=== PATIENT | female | born 1990 | race American Indian/Alaskan Native ===

== ENCOUNTER 2023-07-01 10:25 | Emergency (ER) | payer MEDICAID ==
[2023-07-01] MEDS ORDERED: Sodium Chloride 0.9% 10 ML Syringe FLUSH PRN (10:46)
[2023-07-01] MEDS ORDERED: Sodium Chloride 0.9% 1,000 ML IV STA (10:46)
[2023-07-01] MEDS ORDERED: HYDROmorphone 0.5 MG/0.5 ML Syringe IVPUSH ONE (10:48)
[2023-07-01] MEDS ORDERED: Iopamidol 612 MG/ML 100 ML Bottle IVPUSH ONE (10:58)
[2023-07-01 11:20] LABS: BASOPHILS ABSOLUTE AUTO 0.1 K/mm3 (0.0-0.2); BASOPHILS PERCENT AUTO 0.9 % (0.0-1.0); EOSINOPHILS ABSOLUTE AUTO 0.1 K/mm3 (0.0-0.4); EOSINOPHILS PERCENT AUTO 1.9 % (0.0-6.0); HEMATOCRIT 40.8 % (37.0-47.0); HEMOGLOBIN 13.5 gm/dl (12.0-16.0); IMMATURE GRAN ABSOLUTE AUTO 0.02 K/mm3 (0.00-0.05); IMMATURE GRAN PERCENT AUTO 0.4 % (0.0-0.4); LYMPHOCYTES ABSOLUTE AUTO 1.8 K/mm3 (1.0-4.8); LYMPHOCYTES PERCENT AUTO 34.5 % (24.0-44.0); MEAN CORPUSCULAR HEMOGLOBIN 29.1 pg (28.0-32.0); MEAN CORPUSCULAR HGB CONC 33.1 g/dl (32.0-36.0); MEAN CORPUSCULAR VOLUME 87.9 fl (83.0-99.0); MEAN PLATELET VOLUME 9.4 fl (9.4-12.3); MONOCYTES ABSOLUTE AUTO 0.5 K/mm3 (0.0-0.8); MONOCYTES PERCENT AUTO 9.1 % (0.0-8.0); NEUTROPHILS ABSOLUTE AUTO 2.8 K/mm3 (1.8-7.7); NEUTROPHILS PERCENT AUTO 53.2 % (41.0-71.0); PLATELET COUNT,PLT 339 K/mm3 (150-400); RED BLOOD CELL COUNT 4.64 M/mm3 (4.10-5.30); WHITE BLOOD CELL COUNT,WBC 5.28 K/mm3 (3.9-11.3)
[2023-07-01] MEDS ORDERED: Metoclopramide 10 MG/2 ML SDV IVPUSH ONE (11:20)
[2023-07-01] MEDS ORDERED: Sodium Chloride 0.9% 1,000 ML IV ONE (11:21)
[2023-07-01 11:40] LABS: A/G RATIO 1.1 (1-2); ALBUMIN 3.6 g/dl (3.4-5.0); ANION GAP 12.3 (5-15); BILIRUBIN TOTAL 0.2 mg/dL (0.2-1.0); CALCIUM 9.1 mg/dL (8.5-10.1); CREATININE 0.6 mg/dL (0.55-1.02); EST CRCL DRUG DOSING (CG) 115.16 mL/min; POTASSIUM,K 4.3 mEq/L (3.5-5.1)
[2023-07-01 13:44] LABS: APPEARANCE,URINE CLEAR (Clear); BILIRUBIN,URINE NEGATIVE (Negative); COLOR,URINE YELLOW (Yellow); GLUCOSE,URINE NEGATIVE (Negative); KETONES,URINE NEGATIVE (Negative); LEUKOCYTE ESTERASE,URINE NEGATIVE (Negative); NITRITE,URINE NEGATIVE (Negative); OCCULT BLOOD,URINE NEGATIVE (Negative); PROTEIN,URINE NEGATIVE (Negative); UROBILINOGEN,URINE 0.2 (0.2-1.0)
[2023-07-01 13:52] LABS: BACTERIA,URINE FEW /hpf (FEW); MUCUS,URINE FEW /hpf (FEW); RBC,URINE 0-5 /hpf (0-5); WBC,URINE 0-5 /hpf (0-5)
[2023-07-01 16:46] VITALS: BP 113/64; PULSE 78
== END 2023-07-01 14:44 | disposition home or self-care (01) ==
LOC: JD.ED 10:25
DX: R10.84 Generalized abdominal pain (principal); R11.0 Nausea; Z88.8 Allergy status to other drugs, medicaments and biological substances; Z88.1 Allergy status to other antibiotic agents
CPT/HCPCS: 36415; 74177; 80053; 81001; 83690; 85025; 96361; 96374; 99284; J1170; J3490; J7030; Q9967; 99283